=== PATIENT | female | born 1975 | race Two or more races ===

== ENCOUNTER 2022-05-31 11:15 | Emergency (ER) | payer BC, OTHER ==
[~2022-05-31] VITALS: Ht 160 cm; Wt 64.0 kg
[2022-05-31] MEDS ORDERED: SODIUM CHLORIDE 0.9% 1,000 ML IV ONE (11:45)
[2022-05-31 12:12] LABS: Basophils # (auto) 0 10 ^3/uL (0-0.2); Basophils % (auto) 0.2 % (0.0-2.0); Eosinophils # (auto) 0 10 ^3/uL (0-0.8); Eosinophils % (auto) 0.2 % (0.0-7.0); Hematocrit 41.7 % (36.0-46.0); Hemoglobin 13.6 g/dL (12.2-16.2); Lymphocytes # (auto) 2.4 10 ^3/uL (0.4-5.4); Lymphocytes % (auto) 18.7 % (10.0-50.0); Mean Corpuscular Hgb Conc. 32.6 g/dL (32.0-36.0); Mean Corpuscular Volume 91.9 fL (80.0-100.0); Monocytes # (auto) 0.5 10 ^3/uL (0-1.3); Monocytes % (auto) 3.7 % (0.0-12.0); Neutrophils # (auto) 9.9 10 ^3/uL (1.6-8.6); Neutrophils % (auto) 77.2 % (37.0-80.0); Red Blood Cells 4.54 10^6/uL (4.0-5.20); Red Cell Distribution Width 13.8 % (11.8-14.3); White Blood Cell 12.8 10^3/uL (4.4-10.8)
[2022-05-31 12:35] LABS: Albumin 4.1 g/dL (3.4-5.0); Calcium 9.4 mg/dL (8.5-10.1); Magnesium 1.9 mg/dL (1.6-2.6); Potassium 3.5 mmol/L (3.5-5.1)
[2022-05-31 12:36] LABS: Lactic Acid w/Reflex 4.3 mmol/L (0.4-2.0)
[2022-05-31 12:40] LABS: BUN/Creatinine Ratio 17.1; Bilirubin, Total 0.7 mg/dL (0.2-1.0); Phosphorus 2.6 mg/dL (2.5-4.90); Total Protein 7.4 g/dL (6.4-8.2)
[2022-05-31 14:00] VITALS: BP 140/77
[2022-05-31] MEDS ORDERED: LIDOCAINE 1% HCL (LOCAL ANESTH.) INJ 20ML MDV ID ONE (14:00)
== END 2022-05-31 16:27 | disposition left against medical advice (07) ==
LOC: ER 11:15
DX: R41.82 Altered mental status, unspecified (principal); G83.84 Todd's paralysis (postepileptic); Z20.822 Contact with and (suspected) exposure to COVID-19
CPT/HCPCS: 36415; 36600; 70450; 70551; 71045; 80053; 80320; 80329; 82140; 82805; 83605; 83735; 83880; 84100; 84484; 84702; 85025; 87426; 87804; 93005; 96360; 99285; J7030